=== PATIENT | female | born 1965 | race Caucasian/White ===

== ENCOUNTER 2016-03-05 11:00 | Outpatient (CLI) | payer MEDICAID | END 2016-03-05 11:01 | disposition home or self-care (01) | DX: G47.33 Obstructive sleep apnea (adult) (pediatric) (principal) ==

== ENCOUNTER 2016-10-29 16:12 | Outpatient (CLI) | payer MEDICAID | END 2016-10-29 16:13 | disposition home or self-care (01) | LOC: DI.N 16:12 | PROVIDERS: ATTEND Family Medicine | DX: Z12.31 Encounter for screening mammogram for malignant neoplasm of breast (principal) ==

== ENCOUNTER 2017-05-11 12:50 | Outpatient (CLI) | payer MEDICAID ==
--- NOTE | 2017-05-11 14:08 | Ultrasound Report ---
RIGHT BREAST ULTRASOUND: 05/11/2017 CLINICAL INDICATION: Palpable abnormality right breast. TECHNIQUE: Real-time scanning was performed with goodwill representative static images obtained. FINDINGS: Ultrasound of the palpable abnormality identified by the patient was performed. Unremarkable parenchymal lobules are seen. No discrete solid or cystic lesion is identified. No sonographically suspicious findings are seen. IMPRESSION: NEGATIVE EXAMINATION. RECOMMENDATION: ROUTINE ANNUAL SCREENING UNLESS OTHERWISE CLINICALLY INDICATED. BIRADS CATEGORY 1-NEGATIVE. TD: 05/11/2017 14:07
--- NOTE | 2017-05-11 14:09 | Ultrasound Report ---
LEFT BREAST ULTRASOUND: 05/11/2017 CLINICAL INDICATION: Palpable abnormality. TECHNIQUE: Real-time scanning was performed with escrow representative static images obtained. FINDINGS: Ultrasound of the palpable abnormality identified by the patient was performed. Unremarkable parenchymal lobules are seen. No discrete solid or cystic mass is identified. No sonographically suspicious findings are appreciated. IMPRESSION: NEGATIVE EXAMINATION. RECOMMENDATION: ROUTINE ANNUAL SCREENING UNLESS OTHERWISE CLINICALLY INDICATED. BIRADS CATEGORY 1-NEGATIVE. TD: 05/11/2017 14:08
--- NOTE | 2017-05-11 14:25 | Mammography Report ---
DIGITAL DIAGNOSTIC BILATERAL MAMMOGRAM: 05/11/2017 CLINICAL INDICATION: Palpable abnormalities bilaterally. TECHNIQUE: Bilateral CC, MLO, true lateral views. Markers were placed at the sites of palpable abnormalities identified by the patient. COMPARISON: 06/28/2014, 06/30/2013, 11/04/2010, 07/02/2009. FINDINGS: The breasts demonstrate fatty replacement bilaterally. No suspicious masses, clustered microcalcifications, or regions of architectural distortion are identified. There has been no significant interval change. Please also refer to bilateral breast ultrasounds of the same day. IMPRESSION: NEGATIVE EXAMINATION. RECOMMENDATION: ROUTINE ANNUAL SCREENING UNLESS OTHERWISE CLINICALLY INDICATED. BIRADS CATEGORY 1-NEGATIVE. STANDARD QUALIFYING STATEMENTS: 1. This examination was reviewed with the aid of Computer-Aided Detection (CAD). 2. A negative or benign imaging report should not delay biopsy if clinically suspicious findings are present. Consider surgical consultation if warranted. More than 5% of cancers are not identified by imaging. 3. Dense breasts may obscure an underlying neoplasm. TD: 05/11/2017 14:24
== END 2017-05-11 12:51 | disposition home or self-care (01) ==
LOC: DI 12:50
PROVIDERS: ATTEND Family Medicine
DX: N63.20 Unspecified lump in the left breast, unspecified quadrant (principal); N63.10 Unspecified lump in the right breast, unspecified quadrant
CPT/HCPCS: 76642; 77066